=== PATIENT | male | born 1990 | race Asian ===

== ENCOUNTER 2017-07-31 15:41 | Emergency (ER) | payer OTHER ==
[2017-07-31 15:43] VITALS: TEMP 36.4
--- NOTE | 2017-07-31 16:32 | EMERGENCY ROOM VISIT NOTE ---
ED Visit Note First contact with patient: 15:47 CHIEF COMPLAINT: Left calf injury 30 minutes ago HISTORY OF PRESENT ILLNESS: Patient is a 27-year-old male who presents emergency department accompanied by male friend for evaluation of a left calf injury. He states that it occurred about 30 minutes ago. He was playing soccer , was planted on the left foot pushing off to accelerate, when he felt and heard a snap low in the back of his calf near his ankle. He states that there was a dull, throbbing pain and he fell to the ground. He states that he initially could not move his foot or ankle, but can now. He did try to take a few steps on the left leg initially, but it was painful. He now rates his discomfort a 7/10. He locates it to the posterior aspect of his ankle, over his Achilles tendon. He denies any foot or knee pain. REVIEW OF SYSTEMS: Review of systems as per HPI. All other systems reviewed were negative. At least 6 systems reviewed. PMH: Electronic medical records are reviewed and summarized as above/below. See Problem List. SOCIAL HISTORY: Patient lives at home. He is a PhD student. PHYSICAL EXAM: Vital Signs: Reviewed Nurse's notes. MENTAL STATUS: Patient is a pleasant, well-appearing 27-year-old male who is awake and alert and seated in a wheelchair in no acute distress. MUSCULOSKELETAL: Examination of the left lower extremity does not reveal any obvious deformity. There is no ankle joint effusion palpable. The medial and the lateral malleolus are nontender. No pain over the fifth metatarsal. Lisfranc joint is negative. The calf is soft and nontender. He has tenderness to palpation along the Achilles tendon, and a palpable defect in the midportion of the tendon. He can weakly dorsiflex and plantar flex the ankle. He is able to invert and flory slightly. The foot and toes are warm and well-perfused. Sensation to pain and light touch is intact. EMERGENCY DEPARTMENT COURSE: X-rays of the right ankle were obtained, no acute bony abnormality noted. The patient was wrapped with an miguel wrap and placed and a walking boot. Crutches were issued and patient was instructed on a non weight bearing gait. The patient appears to have sustained a left Achilles tendon rupture. Conservative care measures were discussed. The patient was advised that would likely require surgical intervention, and was given contact information for orthopedics to follow-up with on Wednesday. Patient expressed understanding of this and was agreeable. He was offered analgesia in the emergency department, but declined. Medication reconciliation: I attest that I have personally reviewed the patient' s current medication list. Blood pressure screening : Patient was found to have normal blood pressure on screening and does not require follow-up. Differential diagnosis include Achilles tendon rupture, calf strain, foot verses ankle sprain/fracture, contusion, dislocation. L ANKLE MIN 3 VIEWS ROUTINE CLINICAL HISTORY: 27 years-old Male presenting with LEFT ACHILLES TENDON RUPTURE. TECHNIQUE: Frontal, mortise, and lateral views of the left ankle were obtained. COMPARISON: None. FINDINGS: Ankle mortise intact. No acute fracture or malalignment. Os subtibiale noted. No significant soft tissue swelling. No advanced degenerative change. No radiographic soft tissue abnormality in the region of the Achilles tendon. IMPRESSION: No acute osseous injury. Current/Historical Medications No Active Prescriptions or Reported Meds Allergies Coded Allergies: No Known Allergies (Unverified , 07/31/17) Vital Signs Date Time Temp Pulse Resp B/P (MAP) Pulse Ox O2 Delivery O2 Flow Rate FiO2 07/31/17 16:52 76 18 139/77 98 07/31/17 15:43 36.4 97 16 134/79 97 Departure Information Impression Primary Impression: Rupture of left Achilles tendon Prescriptions No Active Prescriptions or Reported Meds Referrals No Doctor, Assigned (PCP) Jarrell Dubose D.O. Patient Instructions My [facility] Additional Instructions Ibuprofen(Motrin, Advil): may be used for fever or pain. Use 600mg every six hours as needed. Take with food. Avoid using more than 2400mg in a 24 hour period. Do not use 2400mg per day for more than three consecutive days without physician direction. Prolonged inappropriate use can lead to stomach upset or ulcers. This is available over the counter and typically comes in 200mg tablets. (AND/OR) Acetaminophen(Tylenol): may be used for fever or pain. Use 1000mg every eight hours as needed. Avoid using more than 3000mg in a 24 hour period. This is available over the counter. Read all the package inserts or medication information paperwork provided. If you have any questions or concerns call your primary provider, pharmacist or the ER for assistance. Ice compresses for 20 minutes at a time four times daily for 2-3 days. Use the walking boot and crutches as instructed. Rest and elevate your injury as discussed. Continue current medications. Return to the ER immediately for any numbness, tingling, severe pain, extreme swelling in the extremity or as needed. Call [facility] on Wednesday morning arrange follow up for your injury. This follow up is crucial to proper healing and minimizing potential rodent exterminator problems from the injury. If you have any problems getting in with or in contact with the Orthopedist call the ER immediately for assistance. Problem Qualifiers Primary Impression: Rupture of left Achilles tendon Encounter type: initial encounter Qualified Codes: S86.012A - Strain of left Achilles tendon, initial encounter
--- NOTE | 2017-07-31 16:39 | DIAGNOSTIC IMAGING REPORT ---
L ANKLE MIN 3 VIEWS ROUTINE CLINICAL HISTORY: 27 years-old Male presenting with LEFT ACHILLES TENDON RUPTURE. TECHNIQUE: Frontal, mortise, and lateral views of the left ankle were obtained. COMPARISON: None. FINDINGS: Ankle mortise intact. No acute fracture or malalignment. Os subtibiale noted. No significant soft tissue swelling. No advanced degenerative change. No radiographic soft tissue abnormality in the region of the Achilles tendon. IMPRESSION: No acute osseous injury. Electronically signed by: Raad Casas M.D. 07/31/2017 4:37 PM Dictated Date/Time: 07/31/2017 4:35 PM
[2017-07-31 16:52] VITALS: BP 139/77; PULSE 76; O2SAT 98
== END 2017-07-31 16:54 | disposition home or self-care (01) ==
LOC: C.EDB 15:43 → C.EDD 16:45
DX: S86.012A Strain of left Achilles tendon, initial encounter (principal); X50.9XXA Other and unspecified overexertion or strenuous movements or postures, initial encounter; Y93.66 Activity, soccer